=== PATIENT | female | born 1990 | race African-American/Black ===

== ENCOUNTER 2016-12-30 21:48 | Emergency (ER) | payer SELFPAY ==
[~2016-12-30 21:48] MED LIST: ALBUTEROL17 GM INH; DELTASONE20 MG PO; HYDROMET SYRUP480 ML PO; NO MEDICATIONS; ZITHROMAX PO
[2016-12-30 22:08] LABS: INFLUENZA A NEG (NEG); INFLUENZA B NEG (NEG)
== END 2016-12-30 22:24 | disposition home or self-care (01) ==
LOC: SED 21:48
PROVIDERS: Physician Assistant Medical
DX: J06.9 Acute upper respiratory infection, unspecified (principal)
CPT/HCPCS: 87804; 99282